=== PATIENT | female | born 2000 | race Two or more races ===

== ENCOUNTER 2024-11-08 07:03 | Emergency (ER) | payer MEDICAID, SELFPAY ==
[2024-11-08 07:23] VITALS: BP 115/76; PULSE 88; RESP 20; TEMP 37.1; O2SAT 99; BMI 24.4
[2024-11-08] MEDS: FAMOTIDINE 20 MG TABLET 40 MG PO (07:33)
[2024-11-08] MEDS: DiphenhydrAMINE 25 MG CAPSULE 50 MG PO (07:34)
[2024-11-08] MEDS: DEXAMETHASONE SOD PHOS INJ 10 MG/ML VIAL IM (07:35)
--- NOTE | 2024-11-08 07:35 | PD.EDSKIN ---
ED Skin Abcess FB-RME/HPI General Chief complaint: Skin/Abscess/Foreign Body Stated complaint: RASH/SORE THROAT WITH SWALLOWING x2 DAYS Time Seen by Provider: 11/08/24 07:09 Arrival date/time: 11/08/24 07:03 24-year-old female presents to the emergency department complains of rash ongoing for the last couple of days patient reports rash worsened last night Limitations: no limitations Related Data Home Medications ?Medication ?Instructions ?Recorded ?Confirmed vit no.95-ferrous 1 tab PO DAILY 04/22/22 11/14/22 fumarate 28 mg-folic acid 800 mcg tablet () Previous Rx's ?Medication ?Instructions ?Recorded cefuroxime axetil 500 mg tablet 500 mg PO BID #14 tabs 12/13/23 diphenhydramine HCl 25 mg capsule 25 mg PO Q8H PRN allergic symptoms 11/08/24 (Benadryl) #30 caps prednisone 10 mg tablet 30 mg (3 x 10 mg) PO BID 3 days 11/08/24 #18 tabs Allergies Allergy/AdvReac Type Severity Reaction Status Date / Time peanut Allergy Severe Hives Verified 11/08/24 07:05 Review of Systems Review of Systems Systems Reviewed: All systems reviewed, normal except as documented Constitutional Constitutional: Reports system reviewed and no additional complaints, except as documented, Denies fever(s) and Denies headache(s) Eyes Eyes: Reports system reviewed and no additional complaints, except as documented and Denies blurry vision ENT Ears, Nose, Mouth, and Throat: Reports system reviewed and no additional complaints, except as documented, Denies headache(s), Denies nasal congestion and Denies nasal discharge Cardiovascular Cardiovascular: Reports system reviewed and no additional complaints, except as documented, Denies chest pain and Denies dyspnea Respiratory Respiratory: Reports system reviewed and no additional complaints, except as documented, Denies chest congestion, Denies cough and Denies dyspnea Gastrointestinal Gastrointestinal: Reports system reviewed and no additional complaints, except as documented and Denies abdominal pain Integumentary/Breasts Skin/Breast: Reports system reviewed and no additional complaints, except as documented, Reports pruritus and Reports rash Neurologic Neurologic: Reports system reviewed and no additional complaints, except as documented, Reports as per HPI and Denies headache(s) Past Medical History Past Medical History NEUROLOGIC: Negative Neurological Disorders CARDIAC: Negative Cardiac Disorders or Congestive Heart Failure RESPIRATORY: Negative Chronic Obstructive Pulmonary Disease (COPD) GASTROINTESTINAL: Negative Gastrointestinal Disorders, Hepatitis or Colorectal Cancer GENITOURINARY: Negative Genitourinary Disorders, Renal Disease or Prostate Cancer REPRODUCTIVE: Negative Breast Cancer or Testicular Cancer MUSCULOSKELETAL: Negative Musculoskeletal Disorders or Bone Cancer ENDOCRINE: Negative Endocrine Disorders, Diabetes Mellitus Type 1 or Diabetes Mellitus Type 2 HEMATOLOGIC: Positive Anemia; Negative Blood Disorders OTHER HISTORY: Negative Hospitalization, Autoimmune Disease, Down Syndrome, Developmental Delay, Shingles, Falls, Blood Transfusions, Blood Transfusion Reaction, Anesthesia Reactions, Organ Transplant, Chemotherapy, Radiation Therapy, Hyperbaric Therapy, MRSA, VRSA, Vancomycin-Resistant Enterococci, Human Immunodeficiency Virus (HIV), Chicken Pox, Measles, Mumps, Rubella ([place] Measles), Pertussis, Clostridium Difficile, Cancer, Breast Cancer, Cervical Cancer, Colorectal Cancer, Lung Cancer, Ovarian Cancer, Prostate Cancer or Testicular Cancer Family History FAMILY HISTORY: Positive Family Cardiac Disorders (mother and father HTN); Negative Family Psychiatric Problems, Family Respiratory Disorders, Family Gastrointestinal Problems, Family Cancer, Family Surgery or Family Anesthesia Reaction Surgical History SURGICAL: Negative Section or Organ Transplant Social History SMOKING STATUS: Never smoker ED Exam General Limitations: Present no limitations General appearance: Present alert and in no apparent distress Head Head exam: Present atraumatic Eye Eye exam: Present normal appearance, PERRL and EOMI; Absent conjunctival injection ENT ENT exam: Present normal exam, normal oropharynx and mucous membranes moist Neck Neck exam: Present normal inspection, full ROM and trachea midline Chest Chest inspection: Present normal inspection and symmetric chest wall rise Respiratory Respiratory exam: Present normal lung sounds bilaterally Cardiovascular Cardiovascular exam: Present regular rate, normal rhythm and normal heart sounds Abdominal Exam Abdominal exam: Present soft and normal bowel sounds Extremities Exam Extremities exam: Present normal inspection and full ROM Back Exam Back exam: Present normal inspection and full ROM Neurological Exam Neurological exam: Present alert, oriented X3, CN II-XII intact, normal gait and reflexes normal; Absent motor sensory deficit Psychiatric Psychiatric exam: Present normal affect and normal mood Skin Skin exam: Present warm, dry and rash Course Quality Measures none Orders Category Date Time Status Dexamethasone Inj [Decadron Inj] Med 11/08/24 07:29 Discontinued 10 mg IM X1 ONE DiphenhydrAMINE [Benadryl] Med 11/08/24 07:29 Discontinued 50 mg PO X1 ONE Famotidine [Pepcid] Med 11/08/24 07:29 Discontinued 40 mg PO X1 ONE Vital Signs Vital signs: Vital Signs Temperature 98.7 F 11/08/24 07:23 Pulse Rate 88 11/08/24 07:23 Respiratory Rate 20 11/08/24 07:23 Blood Pressure 115/76 11/08/24 07:23 Pulse Oximetry (%) 99 11/08/24 07:23 Oxygen Delivery Method Room Air 11/08/24 07:23 O2 saturation 99% on room air within normal Skin / Abscess / Foreign Body MDM Narrative MDM Narrative:: 24-year-old female presents to the emergency department complains of rash ongoing for the last couple of days patient reports rash worsened last night On exam patient does not appear ill or toxic patient does not appear in acute distress Patient medicated here for allergic reaction Patient has no evidence of anaphylaxis no difficulty swallowing or breathing no cough or shortness of breath Patient discharged home in no distress to follow-up with primary care doctor in the next 24 to 48 hours and for any worsening symptoms to return to the ER immediately Patient data External records reviewed:: [facility] previous records Clinical information provided by:: patient Social determinants that could affect healthcare access:: none Patient has the following chronic illnesses:: None How is presenting disease/condition affected by chronic disease/condition?: no chronic disease Evaluation data The following diagnostics were reviewed and interpreted by me:: other (specify) (N/A) Lab and/or radiology exams considered but not ordered:: Consider not ordered Interpretation Summary: N/A Medications / Prescriptions Medications or Prescriptions considered but not ordered:: Given Medication administrations:: Medication Administration History Discontinued Medications Dexamethasone Sodium Phosphate (Dexamethasone Sod Phos Inj 10 Mg/Ml Vial) 10 mg IM X1 ONE Stop: 11/08/24 07:30 Diphenhydramine HCl (Diphenhydramine 25 Mg Capsule) 50 mg PO X1 ONE Stop: 11/08/24 07:30 Famotidine (Famotidine 20 Mg Tablet) 40 mg PO X1 ONE Stop: 11/08/24 07:30 Given Consultations Consultation(s) initiated? (list below): No Diagnosis Skin/Abscess Differential Diagnosis: abscess of skin or subcutaneous tissue, allergic reaction to drug and cellulitis Most likely diagnosis given after review of the tests above:: Allergic reaction Admission Indicated Admission indicated?: not indicated Admission Request Was there a request for admission?: No Disposition Plan Disposition Plan: Discharge Discharge Attestation Discharge Attestation: The patient and all family members were given an opportunity to ask questions and understood the discharge instructions. Discharge instructions specifically effects, indications for sooner follow up or return to the emergency department, and the expected course of current diagnosis. Patient condition: Stable Discharge Plan Plan Patient Disposition: HOME (Self Care) Disposition Comment: Stable Prescriptions/Referrals Prescriptions/Med Rec: New prednisone 10 mg tablet 30 mg PO BID 3 Days Qty: 18 0RF diphenhydramine HCl [Benadryl] 25 mg capsule 25 mg PO Q8H PRN (Reason: allergic symptoms) Qty: 30 0RF No Action PNV cmb#95-ferrous fumarate-FA [] 28 mg iron- 800 mcg tablet 1 tab PO DAILY Patient Comments: TAKE 1 TABLET BY MOUTH EVERY DAY cefuroxime axetil 500 mg tablet 500 mg PO BID Qty: 14 0RF Problem List Clinical Impression: Allergic reaction Patient/Caregiver Discharge Instructions Education Materials: ED Medicine Reaction: Allergic Additional Instructions: Please follow up with your primary care doctor in the next 24-48hrs for any worsening symptoms return here immediately Print Language: Turkish Stand Alone Forms: Naty Award Info., Work/School Release, Patient Portal Info Letter PA/ACUTE DIALYSIS REGISTERED NURSE Supervising Physician PA/ACUTE DIALYSIS REGISTERED NURSE Supervising Physician: Dr Ziegler
== END 2024-11-08 07:48 | disposition home or self-care (01) ==
LOC: SERX 07:42
PROVIDERS: Emergency Provider Emergency Medicine; PCP Physician Assistant
DX: T78.40XA Allergy, unspecified, initial encounter (principal); R21 Rash and other nonspecific skin eruption
CPT/HCPCS: 96372; 99283; J1100; A9270

== ENCOUNTER 2024-11-09 05:55 | Emergency (ER) | payer MEDICAID, SELFPAY ==
[2024-11-09 05:55] VITALS: BMI 24.6
[2024-11-09 06:20] VITALS: BP 117/70; PULSE 90; RESP 17; TEMP 36.9; O2SAT 97
--- NOTE | 2024-11-09 06:34 | EDNOTE_ITS ---
ED Allergic Reaction RME/HPI General Chief complaint: Allergic Reaction Stated complaint: ALLERGIC REACTION Time Seen by Provider: 11/09/24 06:11 Arrival date/time: 11/09/24 05:55 24-year-old female presents to the emergency department complaints of rash and itching patient was seen by myself yesterday for the same patient reports that she was medicated here yesterday and her symptoms improved but then they returned today Limitations: no limitations Related Data Home Medications ?Medication ?Instructions ?Recorded ?Confirmed vit no.95-ferrous 1 tab PO DAILY 04/22/22 11/14/22 fumarate 28 mg-folic acid 800 mcg tablet () Previous Rx's ?Medication ?Instructions ?Recorded cefuroxime axetil 500 mg tablet 500 mg PO BID #14 tabs 12/13/23 diphenhydramine HCl 25 mg capsule 25 mg PO Q8H PRN allergic symptoms 11/08/24 (Benadryl) #30 caps prednisone 10 mg tablet 30 mg (3 x 10 mg) PO BID 3 days 11/08/24 #18 tabs cetirizine 10 mg capsule (Zyrtec) 10 mg PO QDAY PRN allergy symptoms 11/09/24 #30 caps Allergies Allergy/AdvReac Type Severity Reaction Status Date / Time peanut Allergy Severe Hives Verified 11/08/24 07:05 Review of Systems Review of Systems Systems Reviewed: All systems reviewed, normal except as documented Constitutional Constitutional: Reports system reviewed and no additional complaints, except as documented, Denies fever(s) and Denies headache(s) Eyes Eyes: Reports system reviewed and no additional complaints, except as documented and Denies blurry vision ENT Ears, Nose, Mouth, and Throat: Reports system reviewed and no additional complaints, except as documented, Denies headache(s), Denies nasal congestion and Denies nasal discharge Cardiovascular Cardiovascular: Reports system reviewed and no additional complaints, except as documented, Denies chest pain and Denies dyspnea Respiratory Respiratory: Reports system reviewed and no additional complaints, except as documented, Denies chest congestion, Denies cough and Denies dyspnea Gastrointestinal Gastrointestinal: Reports system reviewed and no additional complaints, except as documented and Denies abdominal pain Integumentary/Breasts Skin/Breast: Reports system reviewed and no additional complaints, except as documented, Reports pruritus and Reports rash Neurologic Neurologic: Reports system reviewed and no additional complaints, except as documented, Reports as per HPI and Denies headache(s) Past Medical History Past Medical History NEUROLOGIC: Negative Neurological Disorders CARDIAC: Negative Cardiac Disorders or Congestive Heart Failure RESPIRATORY: Negative Chronic Obstructive Pulmonary Disease (COPD) GASTROINTESTINAL: Negative Gastrointestinal Disorders, Hepatitis or Colorectal Cancer GENITOURINARY: Negative Genitourinary Disorders, Renal Disease or Prostate Cancer REPRODUCTIVE: Negative Breast Cancer or Testicular Cancer MUSCULOSKELETAL: Negative Musculoskeletal Disorders or Bone Cancer ENDOCRINE: Negative Endocrine Disorders, Diabetes Mellitus Type 1 or Diabetes Mellitus Type 2 HEMATOLOGIC: Positive Anemia; Negative Blood Disorders OTHER HISTORY: Negative Hospitalization, Autoimmune Disease, Down Syndrome, Developmental Delay, Shingles, Falls, Blood Transfusions, Blood Transfusion Reaction, Anesthesia Reactions, Organ Transplant, Chemotherapy, Radiation Therapy, Hyperbaric Therapy, MRSA, VRSA, Vancomycin-Resistant Enterococci, Human Immunodeficiency Virus (HIV), Chicken Pox, Measles, Mumps, Rubella ([place] Measles), Pertussis, Clostridium Difficile, Cancer, Breast Cancer, Cervical Cancer, Colorectal Cancer, Lung Cancer, Ovarian Cancer, Prostate Cancer or Testicular Cancer Family History FAMILY HISTORY: Positive Family Cardiac Disorders (mother and father HTN); Negative Family Psychiatric Problems, Family Respiratory Disorders, Family Gastrointestinal Problems, Family Cancer, Family Surgery or Family Anesthesia Reaction Surgical History SURGICAL: Negative Section or Organ Transplant Social History SMOKING STATUS: Never smoker ED Exam General Limitations: Present no limitations General appearance: Present alert and in no apparent distress Head Head exam: Present atraumatic Eye Eye exam: Present normal appearance, PERRL and EOMI; Absent conjunctival injection ENT ENT exam: Present normal exam, normal oropharynx and mucous membranes moist Neck Neck exam: Present normal inspection, full ROM and trachea midline Chest Chest inspection: Present normal inspection and symmetric chest wall rise Respiratory Respiratory exam: Present normal lung sounds bilaterally; Absent respiratory di stress Cardiovascular Cardiovascular exam: Present regular rate, normal rhythm and normal heart sounds Abdominal Exam Abdominal exam: Present soft and normal bowel sounds; Absent distention, tenderness, guarding, rebound or rigidity Extremities Exam Extremities exam: Present normal inspection and full ROM Back Exam Back exam: Present normal inspection and full ROM Neurological Exam Neurological exam: Present alert, oriented X3, CN II-XII intact, normal gait and reflexes normal; Absent motor sensory deficit Psychiatric Psychiatric exam: Present normal affect and normal mood Skin Skin exam: Present warm, dry, intact, normal color and rash Course Quality Measures none Orders Category Date Time Status Dexamethasone Inj [Decadron Inj] Med 11/09/24 06:30 Discontinued 10 mg IM X1 ONE DiphenhydrAMINE [Benadryl] Med 11/09/24 06:30 Discontinued 25 mg PO X1 ONE Famotidine [Pepcid] Med 11/09/24 06:30 Discontinued 20 mg PO X1 ONE Vital Signs Vital signs: Vital Signs Temperature 98.4 F 11/09/24 06:20 Pulse Rate 90 11/09/24 06:20 Respiratory Rate 17 11/09/24 06:20 Blood Pressure 117/70 11/09/24 06:20 Pulse Oximetry (%) 97 11/09/24 06:20 Oxygen Delivery Method Room Air 11/09/24 06:20 O2 saturation 97% room air within normal limits Allergic Reaction MDM Narrative MDM Narrative:: 24-year-old female presents to the emergency department complaints of rash and itching patient was seen by myself yesterday for the same patient reports that she was medicated here yesterday and her symptoms improved but then they returned today On exam patient does not appear ill or toxic patient does not appear in acute distress patient is no difficulty breathing no difficulty swallowing no evidence of anaphylaxis Patient given dexamethasone Pepcid and Benadryl here and discharged home In addition to the medication patient was discharged with yesterday patient was given Zyrtec as well Patient discharged home in no distress to follow-up with primary care doctor in the next 24 to 48 hours and for any worsening symptoms to return to the ER immediately Patient data External records reviewed:: [facility] previous records Clinical information provided by:: patient Social determinants that could affect healthcare access:: none Patient has the following chronic illnesses:: None How is presenting disease/condition affected by chronic disease/condition?: no chronic disease Evaluation data The following diagnostics were reviewed and interpreted by me:: other (specify) (N/A) Lab and/or radiology exams considered but not ordered:: Consider not ordered Interpretation Summary: N/A Medications / Prescriptions Medications or Prescriptions considered but not ordered:: Given Medication administrations:: Medication Administration History Discontinued Medications Dexamethasone Sodium Phosphate (Dexamethasone Sod Phos Inj 10 Mg/Ml Vial) 10 mg IM X1 ONE Stop: 11/09/24 06:31 Diphenhydramine HCl (Diphenhydramine 25 Mg Capsule) 25 mg PO X1 ONE Stop: 11/09/24 06:31 Famotidine (Famotidine 20 Mg Tablet) 20 mg PO X1 ONE Stop: 11/09/24 06:31 Given Consultations Consultation(s) initiated? (list below): No Diagnosis Differential Diagnosis allergic reaction: anaphylaxis, allergic reaction, angioedema, contact dermatitis and urticaria Most likely diagnosis given after review of the tests above:: Allergic reaction Admission Indicated Admission indicated?: not indicated Admission Request Was there a request for admission?: No Disposition Plan Disposition Plan: Discharge Discharge Attestation Discharge Attestation: The patient and all family members were given an opportunity to ask questions and understood the discharge instructions. Discharge instructions specifically effects, indications for sooner follow up or return to the emergency department, and the expected course of current diagnosis. Patient condition: Stable Discharge Plan Plan Patient Disposition: HOME (Self Care) Disposition Comment: stable Prescriptions/Referrals Prescriptions/Med Rec: New Zyrtec 10 mg capsule 10 mg PO QDAY PRN (Reason: allergy symptoms) Qty: 30 0RF No Action PNV cmb#95-ferrous fumarate-FA [] 28 mg iron- 800 mcg tablet 1 tab PO DAILY Patient Comments: TAKE 1 TABLET BY MOUTH EVERY DAY prednisone 10 mg tablet 30 mg PO BID 3 Days Qty: 18 0RF diphenhydramine HCl [Benadryl] 25 mg capsule 25 mg PO Q8H PRN (Reason: allergic symptoms) Qty: 30 0RF cefuroxime axetil 500 mg tablet 500 mg PO BID Qty: 14 0RF Referrals: Temporary Provider,ED [Primary Care Provider] - 11/10/24 Problem List Clinical Impression: Allergic reaction Patient/Caregiver Discharge Instructions Education Materials: ED Medicine Reaction: Allergic Additional Instructions: Please follow up with your primary care doctor in the next 24-48hrs for any worsening symptoms return here immediately Print Language: Mexican Stand Alone Forms: Naty Award Info., Work/School Release, Patient Portal Info Letter PA/ARCENIO Supervising Physician PA/ARCENIO Supervising Physician: Dr. MISTRY
[2024-11-09] MEDS: FAMOTIDINE 20 MG TABLET PO (06:37)
[2024-11-09] MEDS: DEXAMETHASONE SOD PHOS INJ 10 MG/ML VIAL IM (06:37)
[2024-11-09] MEDS: DiphenhydrAMINE 25 MG CAPSULE PO (06:37)
== END 2024-11-09 06:49 | disposition home or self-care (01) ==
LOC: SERX 06:46
PROVIDERS: Emergency Provider Emergency Medicine; PCP Physician Assistant
DX: T78.40XA Allergy, unspecified, initial encounter (principal)
CPT/HCPCS: 96372; 99283; J1100; A9270

== ENCOUNTER → 2025-03-15 | Outpatient (CLI) | payer MEDICAID, SELFPAY ==
--- NOTE | 2025-03-15 13:30 | XR_ITS ---
Examination: Pelvic ultrasound, transabdominal, complete Technique: Transabdominal ultrasound of the pelvis performed using grayscale imaging Date and time of exam: March 15, 2025 1347 hours INDICATIONS: Vaginal bleeding beginning one month ago, left adnexal cyst on ultrasound pelvis April 30, 2024 FINDINGS: Uterus 9.2 cm endometrial stripe 1.1 cm No uterine mass or intrauterine gestation Right ovary 3.1 cm arterial flow Left ovary 3.0 cm arterial flow 4.1 x 2.2 x 2.2 cm simple left ovarian cyst IMPRESSION: 4.1 x 2.2 x 2.2 cm simple left ovarian cyst
--- NOTE | 2025-03-15 13:30 | XR_ITS ---
Examination: Transvaginal ultrasound of the pelvis, complete Technique: Transvaginal sonographic images pelvis performed using nunez scale imaging Exam date and time: March 15, 2025 1355 hours INDICATIONS: Vaginal bleeding beginning one month ago FINDINGS: Uterus 7.9 cm endometrial stripe 0.4 cm No intrauterine gestation or uterine mass Right ovary 2.7 cm arterial flow Left ovary 1.7 cm arterial flow, simple left ovarian cyst 4.3 x 2.3 x 2.6 cm IMPRESSION: Simple left ovarian cyst 4.3 x 2.3 x 2.6 cm.
== END | disposition home or self-care (01) ==
PROVIDERS: Referring Provider Obstetrics & Gynecology; Visit Provider Obstetrics & Gynecology
DX: N83.292 Other ovarian cyst, left side (principal)
CPT/HCPCS: 76830; 76856